=== PATIENT | male | born 1955 | race Hispanic/Latino ===

== ENCOUNTER 2018-06-08 08:13 | Inpatient (IN) | payer MEDICARE ==
--- NOTE | 2018-06-08 08:23 | ED PDOC ---
Psych Transfer Clearance - Clearance Statement Clearance Statement: Reviewed vital signs, lab results and transfer papers. Patient clinically stable for psychiatric admission.
[2018-06-08 08:25] VITALS: O2SAT 95; BMI 48.7
[2018-06-08] MEDS ORDERED: DiphenhydrAMINE 50 mg/ml Inj IM PRN (08:54)
[2018-06-08] MEDS ORDERED: Magnesium Hydroxide Susp 30 ml UD PO PRN (08:54)
[2018-06-08] MEDS ORDERED: Alum-Mag Hydrox-Simethicone Susp (30 mL) PO PRN (08:54)
--- NOTE | 2018-06-08 08:54 | PCM.PSYCH ---
Initial Psychiatric Evaluation - Initial Psychiatric Evaluation Type of Admission: Voluntary Legal Status: Capacity Chief Complaint (in patient's own words): "I'm depressed." Patient's Reaction to Hospitalization: HPI: 63 yo male w/ history of schizoaffective disorder, presents w/ worsening depression in the context alcohol, cocaine and marijuana abuse. Patient reports feeling depressed, hopeless, w/ auditory hallucinations (non-command) and suicidal ideation w/o current plan/intent. He has been non-compliant with treatment and medications. He reports poor sleep, poor appetite, and low energy. PPHx: 5 previous psychiatric admissions; not compliant with psychiatric treatment or medications PMHx: Arthritis, Sleep Apnea ALL: NKDA SHx: Lived w/ a friend, recently kicked out and homeless; drinks 1/5 of whiskey/day; snorts cocaine daily x 2 weeks and smokes marijuana intermittently; smokes 1.5 ppd Past Psychiatric History - Past Psychiatric History Previous Treatment History: Inpatient Pertinent Medical Hx (Current Medical&Sleep Prob, Allergies): Allergies Allergy/AdvReac Type Severity Reaction Status Date / Time No Known Allergies Allergy Verified 06/08/18 08:19 Review of Systems - Psychiatric Psychiatric: As Per HPI, Abnormal Sleep Pattern, Anxiety, Auditory Hallucinations, Change in Appetite, Depression, Difficulty Concentrating, Hallucinations, Hopelessness, Irritability, Suicidal Ideation Mental Status Examination - Personal Presentation Personal Presentation: Looks older than stated age, Obese - Affect Affect: Constricted, Depressed - Motor Activity Motor Activity: Calm - Reliability in Providing Information Reliability in Providing Information: Fair - Speech Speech: Organized - Mood Mood: Depressed, Anxious - Formal Thought Process Formal Thought Process: Hallucinations - Hallucinations/Delusions Hallucinations: Auditory - Obsessions/Compulsions Obsessions: No Compulsions: No - Cognitive Functions Orientation: Person, Place, Situation, Time Sensorium: Alert Judgement: Imparied, as evidence by: Poor judgement Memory: Recent intact, as evidence by: Ability to recall events of the day - Risk Risk: Suicidal, Diminished functioning - Strength & Assets Inventory Strength & Assets Inventory: Cooperative - Limitations Limitations: Other (Homelessness, Poverty) DSM 5 DX - DSM 5 DSM 5 Diagnosis: Schizoaffective Disorder - Recommended/Plan of Treatment Treatment Recommendations and Plan of Treatment: Schizoaffective Disorder -Admit to psychiatry unit -Individual and group therapy -Medicine consult -Ativan to prevent ETOH withdrawal -Restart Risperdal -Psychoeducation -Nicotine patch -Disposition planning Projected ELOS: 5-8 days Discharge Plan and Discharge Criteria: Discharge when patient is psychiatrically stable - Smoking Cessation Smoking Cessation Initiated: Yes
--- NOTE | 2018-06-08 10:20 | PCM.BM ---
<Devon Crowella - Last Filed: 06/08/18 10:18> Treatment Plan Problems - Problems identified on initial assessmt Anxiety Date Initiated: 06/08/18 Time Initiated: 10:18 Assessment reference: NA Status: Active Fear Date Initiated: 06/08/18 Time Initiated: 10:19 Assessment reference: NA Status: Active Altered Sleep Patterns Date Initiated: 06/08/18 Time Initiated: 10:20 Assessment reference: NA Status: Active Self Care Deficit Date Initiated: 06/08/18 Time Initiated: 10:21 Assessment reference: NA Status: Active Auditory Hallucinations Date Initiated: 06/08/18 Time Initiated: 10:23 Assessment reference: NA Status: Active Treatment assets and liabiliti Patient Assests: cooperative, ADL independent Patient Liabilities: live alone - Milieu Protocol Maintain good personal hygiene: daily Encourage regular showers, daily Remind patient to perform daily oral care, daily Assist patient to perform ADL's Maintain personal safety: every shift Educate patient to report safety concerns to staff, every shift Monitor environment for contraband/sharps Medication safety: Monitor for expected outcome, potential side effects: every shift, Assess barriers to learning: every shift, Assess readiness for medication education: every shift <Tia Scott - Last Filed: 06/08/18 10:26> Treatment Plan Problems - Problems identified on initial assessmt Anxiety Date Initiated: 06/08/18 Time Initiated: 10:18 Assessment reference: NA Status: Active Fear Date Initiated: 06/08/18 Time Initiated: 10:19 Assessment reference: NA Status: Active Altered Sleep Patterns Date Initiated: 06/08/18 Time Initiated: 10:20 Assessment reference: NA Status: Active Self Care Deficit Date Initiated: 06/08/18 Time Initiated: 10:21 Assessment reference: NA Status: Active Auditory Hallucinations Date Initiated: 06/08/18 Time Initiated: 10:23 Assessment reference: NA Status: Active Problem 3 Date Initiated: 06/08/18 Time Initiated: 10:20 - Diagnosis (1) Schizoaffective disorder Status: Acute Interventions: Medication management, Individual and group therapy, Psychoeducation 06/08/18 10:26 Treatment Plan Review - Problem Anxiety Time Initiated: 10:18 Fear Time Initiated: 10:19 Altered Sleep Patterns Time Initiated: 10:20 Self Care Deficit Time Initiated: 10:21 Auditory Hallucinations Time Initiated: 10:23 Problem 3 Time Initiated: 10:20 <Eliana Mclaughlin - Last Filed: 06/09/18 12:25> - Milieu Protocol Maintain good personal hygiene: daily Encourage regular showers, every shift Remind patient to perform daily oral care, every shift Assist patient to perform ADL's Conduct patient checks and document Observation sheet: Q15 minutes Maintain personal safety: every shift Educate patient to report safety concerns to staff, every shift Monitor environment for contraband/sharps Medication safety: Monitor for expected outcome, potential side effects: every shift, Assess barriers to learning: every shift, Assess readiness for medication education: every shift <Camille Porter - Last Filed: 06/09/18 14:35> Family Contact Family involvement: Famliy/SO not involved - Outside Agency [facility] Care involvment: Not involved Agency contact name: Pt is non-compliant with treatment and outpatient referrals. Agency contact number: [phone] - Goals for Treatment Patient goals for treatment: Pt will improve overall mood. Pt will be free of suicide thoughts. Pt will develop strategies for thought distraction when ruminating on the past. Pt will explore and resolve grief and loss issues. Pt w ill het through a week without a crying spell. Pt will be compliant with medications. Pt will attend clinical and activity groups. Pt will comply with unit rules. Pt will shower on a daily basis. Pt will improve intake. Discharge/Continuing Care - Education Needs Education Needs: Patient Medication, Patient Diagnosis/Disease Process, Patient Coping Skills, Patient Community resources, Patient Activities of Daily Living, Patient Health Practices/Safety, Patient Personal Hygiene/Grooming, Patient Aftercare Safety Plan - Discharge Discharge Criteria: Tolerates medication w/o severe side effects, Free of Suicidal thoughts, Normal sleep pattern, Reduction of target symptoms Discharge to:: [facility] - Additional Comments 06/09/18 14:27 Pt seen and discussed in team meeting. Reason for hospitalization reviewed and discussed. Pt's progress on the unit reviewed and discussed. Pt reported being hospitalized due to worsening depression, crying spells, and auditory hallucinations. Pt reported hearing his 's voice. When asked to describe the voice pt stated "it's jibber jabber." Pt reported that the voices come and go. Pt reported non-compliance with prescribed medications and treatment post discharge from hospital. Pt reported he is currently homeless and has not showered in 2 weeks. Pt reported that he has been riding the subways and trains at night time. Pt reported that his plan is to relocate to [place] near his sister. Pt reported that he knows his way around in [place] and knows what transportation he needs to take to get to [place]. Pt reported that upon his arrival to [place] he would seek care home at the [facility]. Pt reported he would have to take his UDS and BAL results with him in order to be able to obtain a bed at the care home. Pt reported he that he has survivor's guilt and that it is difficult for him to remain in [place]. Pt's medications reviewed and discussed with attending psychiatrist. Pt's social and medical issues reviewed. Tx plan reviewed and pt verbalized agreement. Pt reported no collateral information. SW to continue to follow case. - Treatment Team Participation Discussed with Family/SO: No Was Patient/Family/SO present at Treatment Team Meeting: Yes
--- NOTE | 2018-06-08 16:43 | CP.PCM.CON ---
History of Present Illness - History of Present Illness History of Present Illness: 63 yo male with history of schizoaffective DO admitted to [facility] because of worsening depression adn polysubstance abuse. Review of Systems - Review of Systems All systems: reviewed and no additional remarkable complaints except (aside from those mentioned above, 12 point system review were negative by me) Past Patient History - Infectious Disease Hx of Infectious Diseases: None - Tetanus Immunizations Tetanus Immunization: Unknown - Past Social History Smoking Status: Heavy Smoker > 10 Cigarettes Daily Chewing Tobacco Use: No Cigar Use: No Alcohol: > 2 Drinks/Day Drugs: Denies - CARDIAC Hx Cardiac Disorders: No - PULMONARY Hx Sleep Apnea: Yes - NEUROLOGICAL Hx Neurological Disorder: No - HEENT Hx HEENT Problems: No - RENAL Hx Chronic Kidney Disease: No - ENDOCRINE/METABOLIC Hx Endocrine Disorders: No - HEMATOLOGICAL/ONCOLOGICAL Hx Blood Disorders: No - INTEGUMENTARY Hx Dermatological Problems: No - MUSCULOSKELETAL/RHEUMATOLOGICAL Hx Musculoskeletal Disorders: Yes Hx Arthritis: Yes Hx Back Pain: Yes Hx Falls: Yes Hx Herniated Disk: Yes - GASTROINTESTINAL Hx Gastrointestinal Disorders: No - GENITOURINARY/GYNECOLOGICAL Hx Genitourinary Disorders: No - PSYCHIATRIC Hx Anxiety: Yes Hx Bipolar Disorder: Yes Hx Depression: Yes Hx Emotional Abuse: No Hx Physical Abuse: No Hx Sexual Abuse: No Hx Substance Use: Yes (cocaine use one week ago) - SURGICAL HISTORY Hx Surgeries: No - ANESTHESIA Hx Anesthesia: No Meds Allergies/Adverse Reactions: Allergies Allergy/AdvReac Type Severity Reaction Status Date / Time No Known Allergies Allergy Verified 06/08/18 08:19 - Medications Medications: Current Medications Acetaminophen (Tylenol 325mg Tab) 650 mg PO Q4 PRN PRN Reason: Pain, moderate (4-7) Al Hydrox/Mg Hydrox/Simethicone (Maalox Plus 30 Ml) 30 ml PO Q4 PRN PRN Reason: Dyspepsia Diphenhydramine HCl (Benadryl) 50 mg IM Q6 PRN PRN Reason: Extrapyramidal S/S Unable PO Diphenhydramine HCl (Benadryl) 50 mg PO Q6 PRN PRN Reason: Extrapyramidal Symptoms Haloperidol (Haldol) 5 mg PO Q4 PRN PRN Reason: Agitation Haloperidol Lactate (Haldol) 5 mg IM Q4 PRN PRN Reason: Agitation, Unable to Take PO Lorazepam (Ativan) 2 mg IM Q4 PRN PRN Reason: Anxiety/Agitation,Unable PO Lorazepam (Ativan) 1 mg PO Q8 PRN PRN Reason: Anxiety Lorazepam (Ativan) 1 mg PO TID [facility] Last Admin: 06/08/18 12:04 Dose: 1 mg Magnesium Hydroxide (Milk Of Magnesia) 30 ml PO HS PRN PRN Reason: Constipation Nicotine (Nicoderm Cq) 1 patch TD DAILY [facility] Last Admin: 06/08/18 12:07 Dose: 1 patch Risperidone (Risperdal Tab) 1 mg PO Q12 [facility] Last Admin: 06/08/18 12:07 Dose: 1 mg Physical Exam - Constitutional Appears: No Acute Distress - Head Exam Head Exam: ATRAUMATIC - Eye Exam Eye Exam: absent: Scleral icterus - ENT Exam ENT Exam: Mucous Membranes Moist - Neck Exam Neck exam: Negative for: Meningismus - Respiratory Exam Respiratory Exam: absent: Rales, Rhonchi, Wheezes, Respiratory Distress - Cardiovascular Exam Cardiovascular Exam: REGULAR RHYTHM, +S1, +S2 - GI/Abdominal Exam GI & Abdominal Exam: Soft. absent: Tenderness - Rectal Exam Rectal Exam: Deferred - Neurological Exam Neurological exam: Alert, Oriented x3 - Psychiatric Exam Psychiatric exam: Normal Affect - Skin Skin Exam: Dry, Intact Results - Vital Signs Recent Vital Signs: Last Vital Signs Temp 98.2 F 06/08/18 16:00 Pulse 72 06/08/18 16:00 Resp 18 06/08/18 16:00 BP 97/58 L 06/08/18 16:00 Pulse Ox 95 06/08/18 08:18 Assessment & Plan (1) Depression Status: Acute Comment: psyche is managing
[2018-06-09 06:18] LABS: BASO # 0.1 K/uL (0.0-0.2); BASO % 1.2 % (0.0-2.0); EOS # 0.4 K/uL (0.0-0.7); EOS % 4.8 % (0.0-4.0); HEMOGLOBIN 15.3 g/dL (12.0-18.0); LYMPH # 2.3 K/uL (1.0-4.3); LYMPH % 27.9 % (20.0-40.0); MEAN CORPUSCULAR HEMOGLOBIN 28.6 pg (27.0-31.0); MEAN PLATELET VOLUME 8.2 fl (7.2-11.7); MONO # 0.5 K/uL (0.0-0.8); MONO % 6.5 % (0.0-10.0); NEUT # 4.8 K/uL (1.8-7.0); NEUT % 59.6 % (50.0-75.0); NRBC % 0.1 % (0.0-0.0); RBC 5.37 Mil/uL (4.40-5.90); RED CELL DISTRIBUTION WIDTH 14.6 % (11.5-14.5); WHITE BLOOD COUNT 8.1 K/uL (4.8-10.8)
[2018-06-09 06:52] LABS: ALB/GLOB RATIO 1.2 (1.0-2.1); ALBUMIN 3.5 g/dL (3.5-5.0); ALT/SGPT 20 U/L (21-72); AST/SGOT 17 U/L (17-59); BLOOD UREA NITROGEN 13 mg/dl (9-20); CALCIUM 8.9 mg/dL (8.4-10.2); GFR NON-AFRICAN AMERICAN > 60; HDL CHOLESTEROL 36 MG/DL (30-70); LDL CHOLESTEROL 97 mg/dL (0-129)
--- NOTE | 2018-06-09 08:50 | PCM.PYCHPN ---
Psychiatric Progress Note - Psychiatric Progress Note Patient seen today, length of contact: Pt evaluated, case discussed w/ team, chart reviewed Patient Chief Complaint: "I'm depressed." Problems Identified/Issues Discussed: Patient continues to report feeling depressed, w/ feelings of hopelessness and suicidal ideation w/o plan/intent. He was tearful on interview and states that he does not want to live anymore. He continues to hear AH, but states that they are not command. He denies adverse effects to Risperdal. Psychoeducation provided on the dangers of substance abuse and the importance of compliance with treatment and medications. No signs/symptoms of ETOH withdrawal. Medication Change: No Medical Record Reviewed: Yes Consults ordered or reviewed: Medicine consult Mental Status Examination - Cognitive Function Orientation: Person, Place, Situation, Time Memory: Intact Attention: WNL Concentration: WNL Association: WNL Fund of Knowledge: WNL - Mood Mood: Depressed, Anxious - Affect Affect: Constricted, Depressed - Formal Thought Process Formal Thought Process: Hallucinations Psychotic Thoughts and Behaviors: +AH - Suicidal Ideation Suicidal Ideation: Yes Plan: No current plan - Homicidal Ideation Homicidal Ideation: No Goal/Treatment Plan - Goal/Treatment Plan Need for Continued Stay: Remain at risks for inpatient hospitalization, Severe depression anxiety Progress Toward Problem(s) and Goals/Treatment Plan: Schizoaffective Disorder -Individual and group therapy -Medicine consult -Ativan to prevent ETOH withdrawal; will taper gradually and stop -Continue Risperdal -Psychoeducation -Nicotine patch -Disposition planning Estimated Date of D/C: 06/15/18 - Smoking Cessation Smoking Cessation Initiated: Yes
--- NOTE | 2018-06-10 11:03 | PCM.PYCHPN ---
Psychiatric Progress Note - Psychiatric Progress Note Patient seen today, length of contact: Pt evaluated, case discussed w/ team, chart reviewed Patient Chief Complaint: I am feeling down Problems Identified/Issues Discussed: pt seen in day room, partial eye contact depressed mood and affect, no reported symptoms of alcohol withdrawal denied perceptual disturbances, denied suicidal or homicidal ideation DSM 5 Symptoms Update: schizophrenia alcohol abuse Medication Change: No Medical Record Reviewed: Yes Mental Status Examination - Cognitive Function Orientation: Person, Place, Situation, Time Memory: Intact Attention: WNL Concentration: WNL Association: WNL Fund of Knowledge: WNL - Mood Mood: Depressed, Anxious - Affect Affect: Constricted, Depressed - Speech Speech: Soft - Formal Thought Process Formal Thought Process: Hallucinations - Suicidal Ideation Suicidal Ideation: No - Homicidal Ideation Homicidal Ideation: No Goal/Treatment Plan - Goal/Treatment Plan Need for Continued Stay: Remain at risks for inpatient hospitalization, Severe depression anxiety Progress Toward Problem(s) and Goals/Treatment Plan: discontinue ativan continue with risperidone motivational group and supportive therapy Estimated Date of D/C: 06/15/18
--- NOTE | 2018-06-11 12:22 | PCM.PYCHPN ---
Psychiatric Progress Note - Psychiatric Progress Note Patient seen today, length of contact: Pt evaluated, case discussed w/ team, chart reviewed Patient Chief Complaint: I am still depressed Problems Identified/Issues Discussed: pt seen in bed, reported continues to feel down, pt also continues to experience non command auditory hallucinations, discussed increasing dose of risperidone, no reported symptoms of alcohol withdrawal , denied suicidal or homicidal i deation DSM 5 Symptoms Update: schizoaffective disorder alcohol dependence Medication Change: Yes (increase risperidone ) Medical Record Reviewed: Yes Mental Status Examination - Cognitive Function Orientation: Person, Place, Situation, Time Memory: Intact Attention: WNL Concentration: WNL Association: WNL Fund of Knowledge: WNL - Mood Mood: Depressed, Anxious - Affect Affect: Constricted, Depressed - Speech Speech: Soft - Formal Thought Process Formal Thought Process: Hallucinations - Suicidal Ideation Suicidal Ideation: No - Homicidal Ideation Homicidal Ideation: No Goal/Treatment Plan - Goal/Treatment Plan Need for Continued Stay: Remain at risks for inpatient hospitalization, Severe depression anxiety Progress Toward Problem(s) and Goals/Treatment Plan: discontinue ativan increase risperidone 1mg daily and 2mg qhs motivational group and supportive therapy Estimated Date of D/C: 06/15/18
--- NOTE | 2018-06-12 08:28 | PCM.PYCHPN ---
Psychiatric Progress Note - Psychiatric Progress Note Patient seen today, length of contact: Pt evaluated, case discussed w/ team, chart reviewed Patient Chief Complaint: "I'm depressed." Problems Identified/Issues Discussed: Patient reports feeling depressed w/ poor sleep and continued AH of his . He continues to feel hopeless. He denies acute suicidal ideation/plan/intent. He is tearful during interview and reports low motivation. He denies adverse effects to Risperdal. Medication Change: Yes (Increase Risperdal) Medical Record Reviewed: Yes Consults ordered or reviewed: Medicine consult Mental Status Examination - Cognitive Function Orientation: Person, Place, Situation, Time Memory: Intact Attention: WNL Concentration: WNL Association: WNL Fund of Knowledge: WN Decription of patient's judgement and insights: Improving I/J - Mood Mood: Depressed, Anxious - Affect Affect: Constricted, Depressed - Speech Speech: Soft - Formal Thought Process Formal Thought Process: Hallucinations Psychotic Thoughts and Behaviors: +AH of his - Suicidal Ideation Suicidal Ideation: No - Homicidal Ideation Homicidal Ideation: No Goal/Treatment Plan - Goal/Treatment Plan Need for Continued Stay: Remain at risks for inpatient hospitalization, Severe depression anxiety Progress Toward Problem(s) and Goals/Treatment Plan: Schizoaffective Disorder -Individual and group therapy -Medicine consult -Increase Risperdal -Psychoeducation -Nicotine patch -Disposition planning Estimated Date of D/C: 06/15/18
--- NOTE | 2018-06-13 09:23 | PCM.PYCHPN ---
Psychiatric Progress Note - Psychiatric Progress Note Patient seen today, length of contact: Pt evaluated, case discussed w/ team, chart reviewed Patient Chief Complaint: "I'm depressed." Problems Identified/Issues Discussed: Patient reports that his mood is starting to improve. He denies acute AH and states that the AH of his are less frequent. He denies acute VH/SI/HI. He denies adverse effects to Risperdal. Medication Change: No Medical Record Reviewed: Yes Consults ordered or reviewed: Medicine consult Mental Status Examination - Cognitive Function Orientation: Person, Place, Situation, Time Memory: Intact Attention: WNL Concentration: WNL Association: [facility] Fund of Knowledge: [facility] Decription of patient's judgement and insights: Improving I/J - Mood Mood: Depressed - Affect Affect: Constricted, Depressed - Speech Speech: Appropriate - Formal Thought Process Formal Thought Process: No Impairment Psychotic Thoughts and Behaviors: Less frequent AH of - Suicidal Ideation Suicidal Ideation: No - Homicidal Ideation Homicidal Ideation: No Goal/Treatment Plan - Goal/Treatment Plan Need for Continued Stay: Remain at risks for inpatient hospitalization, Severe depression anxiety Progress Toward Problem(s) and Goals/Treatment Plan: Schizoaffective Disorder -Individual and group therapy -Medicine consult -Continue Risperdal -Psychoeducation -Nicotine patch -Disposition planning Estimated Date of D/C: 06/15/18
--- NOTE | 2018-06-14 08:33 | PCM.PYCHPN ---
Psychiatric Progress Note - Psychiatric Progress Note Patient seen today, length of contact: Pt evaluated, case discussed w/ team, chart reviewed Patient Chief Complaint: "I'm getting better." Problems Identified/Issues Discussed: Patient denies acute AH. He reports that his mood is improving. He denies acute SI/HI/CAH/paranoia/delusions. No adverse effects to medications reported. Psychoeducation provided on the dangers of alcohol and drug abuse and the impor tance of compliance with treatment and medications. Medication Change: No Medical Record Reviewed: Yes Consults ordered or reviewed: Medicine consult Mental Status Examination - Cognitive Function Orientation: Person, Place, Situation, Time Memory: Intact Attention: WNL Concentration: WNL Association: WNL Fund of Knowledge: [facility] Decription of patient's judgement and insights: Fair I/J - Mood Mood: Depressed - Affect Affect: Constricted - Speech Speech: Appropriate - Formal Thought Process Formal Thought Process: No Impairment Psychotic Thoughts and Behaviors: Less frequent AH of - Suicidal Ideation Suicidal Ideation: No - Homicidal Ideation Homicidal Ideation: No Goal/Treatment Plan - Goal/Treatment Plan Need for Continued Stay: Remain at risks for inpatient hospitalization, Severe depression anxiety Progress Toward Problem(s) and Goals/Treatment Plan: Schizoaffective Disorder -Individual and group therapy -Medicine consult -Continue Risperdal -Psychoeducation -Nicotine patch -Disposition planning- discharge tomorrow if patient continues to improve clinically Estimated Date of D/C: 06/15/18
[2018-06-15 06:33] VITALS: BP 143/76; PULSE 90; RESP 18; TEMP 98.1
--- NOTE | 2018-06-15 08:03 | PCM.PYCHDC ---
Mental Status Examination - Mental Status Examination Orientation: Person, Place, Situation, Time Memory: Intact Mood: Neutral Affect: Broad Speech: Appropriate Attention: WNL Concentration: WNL Association: WNL Fund of Knowledge: WNL Formal Thought Process: No Impairment Description of patient's judgement and insight: Fair I/J Psychotic Thoughts and Behaviors: No AH/VH/paranoia/delusions Suicidal Ideation: No Current Homicidal Ideation?: No Discharge Summary - Discharge Note Reason for Hospitalization: HPI: 63 yo male w/ history of schizoaffective disorder, presents w/ worsening depression in the context alcohol, cocaine and marijuana abuse. Patient reports feeling depressed, hopeless, w/ auditory hallucinations (non-command) and suicidal ideation w/o current plan/intent. He has been non-compliant with treatment and medications. He reports poor sleep, poor appetite, and low energy. PPHx: 5 previous psychiatric admissions; not compliant with psychiatric treatment or medications PMHx: Arthritis, Sleep Apnea ALL: NKDA SHx: Lived w/ a friend, recently kicked out and homeless; drinks 1/5 of whiskey/day; snorts cocaine daily x 2 weeks and smokes marijuana intermittently; smokes 1.5 ppd Consultations:: List each consultation separately and include: 1. Reason for request. 2. Findings. 3. Follow-up Consultations: Medicine consult Summary of Hospital Course include:: 1. Description of specific treatment plan utilized for patients during their course of treatmen. 2. Summarize the time- course for resolution of acute symptoms and/or regressed behaviors. 3. Describe issues identified and worked on during hospitalization. 4. Describe medication utilized. 5. Describe medical problems identified and treated. 6. Reassessment of suicide risk Summary of Hospital Course: Patient was admitted to the psychiatry unit. Individual and group therapy were provided. Patient was stabilized on Risperdal 2 mg PO Q12. He denies acute depression/anxiety/AH/VH/paranoia/delusions. He is psychiatrically stable for discharge at this time. Psychoeducation provided on the importance of compliance with treatment/medications and abstinence from drugs/etoh. Smoking cessation provided during admission, patient declined nicotine patch upon discharge. - Diagnosis (1) Schizoaffective disorder Current Visit: Yes Status: Acute - Final Diagnosis (DSM 5) Condition upon Discharge: STABLE DSM 5: Schizoaffective Disorder Disposition: HOME/ ROUTINE Follow-up Treatment Plan: Schizoaffective Disorder; patient is psychiatrically stable for discharge at this time -Continue Risperdal 2 mg PO Q12 Prescriptions/Medication Reconciliation: risperiDONE [RisperDAL Tab] 2 mg PO Q12 #60 tab - Smoking Cessation Smoking Cessation Medication prescribed: Yes Reason for not providing: Patch provided during admission; patient declined outpatient prescription - Antipsychotic Medications Pt discharged on 2 or more routine antipsychotic medications: No
== END 2018-06-15 13:00 | disposition home or self-care (01) | DRG 885 ==
LOC: H.ER 08:13 → EDSEX 08:13 → H.ERHOLD 08:22 → H.STEP 08:56
PROVIDERS: ADMIT Psychiatry & Neurology Psychiatry; ATTEND Psychiatry & Neurology Psychiatry
PROC: GZHZZZZ Group Psychotherapy (ICD-10-PCS; principal; 2018-06-08)
PROC: GZ58ZZZ Individual Psychotherapy, Cognitive-Behavioral (ICD-10-PCS; 2018-06-08)
PROC: HZ52ZZZ Individual Psychotherapy for Substance Abuse Treatment, Cognitive-Behavioral (ICD-10-PCS; 2018-06-08)
DX: F25.9 Schizoaffective disorder, unspecified (principal); R45.851 Suicidal ideations; F10.20 Alcohol dependence, uncomplicated; F12.10 Cannabis abuse, uncomplicated; F14.10 Cocaine abuse, uncomplicated; F41.9 Anxiety disorder, unspecified; G47.30 Sleep apnea, unspecified; Z91.14 Patient's other noncompliance with medication regimen; Z91.19 Patient's noncompliance with other medical treatment and regimen; M19.90 Unspecified osteoarthritis, unspecified site; F17.210 Nicotine dependence, cigarettes, uncomplicated; Z59.0 Homelessness